=== PATIENT | male | born 1995 | race Two or more races ===

== ENCOUNTER 2019-10-30 12:08 | Emergency (ER) | payer OTHER ==
[~2019-10-30] VITALS: Ht 177.8 cm; Wt 72.6 kg
[2019-10-30 12:16] VITALS: BP 108/62
[2019-10-30] MEDS ORDERED: Tylenol #3 tab (300mg/30mg) ORAL ONE (13:00)
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
[2019-10-30] MEDS ORDERED: IBU800 MG PO (13:16)
[2019-10-30] MEDS ORDERED: ROBAXIN-500MG ORAL (13:16)
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
[2019-10-30 13:23] VITALS: BP 112/74
== END 2019-10-30 13:23 | disposition home or self-care (01) ==
LOC: EMR 12:20
DX: S00.83XA Contusion of other part of head, initial encounter (principal); S60.211A Contusion of right wrist, initial encounter; X58.XXXA Exposure to other specified factors, initial encounter; Y92.9 Unspecified place or not applicable
CPT/HCPCS: 29125; 70486; 73110; Z7502; 99284